=== PATIENT | female | born 1965 | race Caucasian/White ===

== ENCOUNTER 2019-04-15 07:27 | Day surgery (SDC) | payer OTHER ==
[~2019-04-15] VITALS: Ht 152.4 cm; Wt 79.8 kg
[2019-04-15 07:39] VITALS: BP 127/75
[2019-04-15 15:13] VITALS: BP 101/66
== END 2019-04-15 12:40 | disposition home or self-care (01) ==
LOC: GI 07:27
DX: Z12.11 Encounter for screening for malignant neoplasm of colon (principal); D12.2 Benign neoplasm of ascending colon; M81.0 Age-related osteoporosis without current pathological fracture; M19.90 Unspecified osteoarthritis, unspecified site; F41.9 Anxiety disorder, unspecified; Z86.010 Personal history of colon polyps; Z87.59 Personal history of other complications of pregnancy, childbirth and the puerperium; Z98.890 Other specified postprocedural states; Z79.899 Other long term (current) drug therapy; Z90.710 Acquired absence of both cervix and uterus
CPT/HCPCS: 45378; G0500; J1200; J1610; J2250; J2310; J3010; J3490